=== PATIENT | female | born 1995 | race Caucasian/White ===

== ENCOUNTER → 2020-01-23 | Outpatient (CLI) | payer OTHER ==
[~2020-01-23] VITALS: Ht 165.1 cm; Wt 113.6 kg
[~2020-01-23] MED LIST: CEPHALEXIN250 M1 PO; FLEXERIL5 MG PO; PRENATAL TABLET PO; REGLAN 5MG T5 MG/TAB PO
--- NOTE | 2020-01-23 07:50 | NUR ---
0750- Pt arrives on unit via wheelchair, states that she was at work this morning, after voiding she stood up and was washing her hands, she started to see spots and not feel well. She got dizzy and then "woke up on the floor." She denies hitting her belly or her head. She denies VB, LOF, cramping. Pt into bathroom to change into gown. 0755- Pt into bed, EFM and TOCO applied and tracing.
[2020-01-23 08:30] VITALS: BP 135/75; PULSE 105
[2020-01-23 09:00] VITALS: BP 120/62; PULSE 91
--- NOTE | 2020-01-23 09:00 | NUR ---
0840- Dr Lima on unit, updated on Pt and current finding. reviews strip from nurses station. MD talks with ED MD about next steps in care. 0850- VORB received from Dr Lima, CBC, CMP, CCUA, 1L LR via IV. to bedside, meets Pt and updates her on care. 0901- EFM and TOCO off, Pt up to void and provide urine sample. Pt denies dizziness at this time.
[2020-01-23 09:47] LABS: COLLECTION METHOD CLEAN CATCH
[2020-01-23 09:50] LABS: BASO % 0.3 % (0.0-2.0); EOS # 0.1 (0.0-0.7); EOS % 0.7 % (0-4.0); GRAN % 77.8 % (42.2-75.2); HEMOGLOBIN 11.2 g/dl (12.5-16.0); LYMPH # 1.5 (1.2-3.4); LYMPH % 12.8 % (20.0-51.0); MEAN CELL VOLUME 91 fl (80.0-100.0); MEAN CORPUSCULAR HEMOGLOBIN 31 pg (27.0-31.0); MEAN CORPUSCULAR HGB CONC 34 g/dl (33.0-37.0); MEAN PLATELET VOLUME 9.2 fl (7.4-10.4); MONO # 0.8 (0.1-0.6); MONO % 6.4 % (1.7-9.3); PLATELET COUNT 198 K/mm3 (130-400); RED BLOOD COUNT 3.66 M/mm3 (4.10-5.30); REDCELL DISTRIBUTION WIDTH-CV 12.1 % (11.5-14.5)
[2020-01-23 09:53] LABS: HEMATOCRIT 33.3 % (37.0-47.0); MUCOUS Present /lpf; PH 7 (5-8); URINE APPEARANCE Hazy; URINE BACTERIA Rare /hpf; URINE BILIRUBIN Negative (NEGATIVE); URINE BLOOD Negative (NEGATIVE); URINE COLOR Yellow; URINE GLUCOSE Negative (NEGATIVE); URINE KETONE Negative (NEGATIVE); URINE LEUKOCYTE ESTERASE Negative (NEGATIVE); URINE NITRATE Negative (NEGATIVE); URINE PROTEIN(semi-quant) Negative (NEGATIVE); URINE RBC 0-2 /hpf; URINE UROBILINOGEN Negative (NEGATIVE)
[2020-01-23 10:00] VITALS: BP 114/64; PULSE 85
[2020-01-23 10:00] LABS: ALBUMIN 3.2 gm/dL (3.5-5.0); BILIRUBIN,TOTAL 0.2 mg/dL (0.0-1.0); CALCIUM 8.4 mg/dL (8.4-10.2); CREATININE, serum 0.53 (0.52-1.25); POTASSIUM 4.1 mmol/L (3.4-5.0); TOTAL PROTEIN 6.3 gm/dL (6.4-8.2)
[2020-01-23 10:30] VITALS: BP 111/61; PULSE 84
[2020-01-23 10:43] VITALS: BP 108/60; PULSE 77
== END ==
LOC: LDRO 07:48
PROVIDERS: Obstetrics & Gynecology
DX: O26.893 Other specified pregnancy related conditions, third trimester (principal); Z3A.30 30 weeks gestation of pregnancy
CPT/HCPCS: J7120